=== PATIENT | male | born 1950 | race American Indian/Alaskan Native ===

== ENCOUNTER 2020-08-06 13:42 | Outpatient (CLI) | payer BC, MEDICARE ==
--- NOTE | 2020-08-08 15:23 | XRay Report ---
Bilateral knees-2 views each INDICATION: KNEE PAIN. COMPARISON: None. IMPRESSION: No acute osseous abnormality. Moderate bilateral tricompartmental DJD with trace supr apatellar effusions (larger on the right) which may be reactive. Signer Name: Jorge Andrew MD Signed: 08/06/2020 3:15 PM Workstation Name: [id number]
== END 2020-08-06 13:43 | disposition home or self-care (01) ==
LOC: SPVIMAG 13:42
PROVIDERS: ATTEND Urology
DX: M25.569 Pain in unspecified knee (principal)